=== PATIENT | female | born 1955 | race Two or more races ===

== ENCOUNTER 2017-06-12 13:02 | Emergency (ER) | payer OTHER ==
[2017-06-12 13:07] VITALS: BP 159/87; PULSE 96; TEMP 99; BMI 27.4
[2017-06-12] MEDS ORDERED: KETOROLAC TROMETHAMINE 30 MG/1 ML VIAL IM ONE (13:34)
[2017-06-12] MEDS ORDERED: KETOROLAC TROMETHAMINE 30 MG/1 ML VIAL ONE (13:42)
[2017-06-12 14:20] LABS: URINE APPEARANCE CLEAR; URINE BILIRUBIN NEGATIVE (NEGATIVE); URINE BLOOD NEGATIVE (NEGATIVE); URINE COLOR LTYELLOW; URINE GLUCOSE (UA) NEGATIVE (NEGATIVE); URINE KETONE NEGATIVE (NEGATIVE); URINE NITRITE NEGATIVE (NEGATIVE); URINE PROTEIN NEGATIVE (NEGATIVE); URINE UROBILINOGEN NEGATIVE mg/dL (0.2-1.0)
--- NOTE | 2017-06-12 14:29 | PDOC ---
History of Present Illness - General Chief Complaint: Injury Stated Complaint: FALL Time Seen by Provider: 06/12/17 13:26 History Source: Patient Exam Limitations: Language Barrier - History of Present Illness Initial Comments: 06/12/17 14:24 Daughters translating; CC fell on steps x 4 days ago with continued pain; Occurred: reports: last week Severity: reports: moderate Pain Location: reports: back, lower extremity (hip right) Method of Injury: Yes: fall Past History - Past Medical History Allergies/Adverse Reactions: Allergies Allergy/AdvReac Type Severity Reaction Status Date / Time No Known Allergies Allergy Verified 06/12/17 13:07 Home Medications: Ambulatory Orders Acetaminophen [Tylenol] 650 mg PO ASDIR 06/12/17 Amlodipine Besylate 10 mg PO DAILY 06/12/17 Glyburide/Metformin HCl [Glyburide-Metformin 5-500 mg] 1 each PO DAILY 06/12/17 Losartan Potassium [Cozaar] 100 mg PO DAILY 06/12/17 Diabetes: Yes HTN: Yes Other medical history: ARTHRITIS - Psycho/Social/Smoking Cessation Hx Anxiety: No Suicidal Ideation: No Smoking History: Never smoked Hx Alcohol Use: No Drug/Substance Use Hx: No Substance Use Type: None Review of Systems - Review of Systems Constitutional: No: Chills, Fever HEENTM: No: Symptoms Reported Respiratory: No: Cough Musculoskeletal: Yes: Back Pain, Joint Pain (right hip) Integumentary: No: Symptoms Reported Neurological: No: Numbness, Paresthesia, Tingling, Weakness *Physical Exam - Vital Signs Last Vital Signs Temp Pulse Resp BP Pulse Ox 99.0 F 96 H 20 159/87 99 06/12/17 13:04 06/12/17 13:04 06/12/17 13:04 06/12/17 13:04 06/12/17 13:04 - Physical Exam General Appearance: Yes: Appropriately Dressed Neck: positive: Supple. negative: Tender, Rigid Respiratory/Chest: positive: Lungs Clear. negative: Respiratory Distress Gastrointestinal/Abdominal: positive: Normal Bowel Sounds Lymphatic: positive: Adenopathy Musculoskeletal: positive: Other (tender to area L2-4; also pain right pelvis) ED Treatment Course - ADDITIONAL ORDERS Additional order review: Laboratory Results 06/12/17 13:45 Urine Color Ltyellow Urine Appearance Clear Urine pH 7.0 Urine Protein Negative Urine Glucose (UA) Negative Urine Ketones Negative Urine Blood Negative Urine Nitrite Negative Urine Bilirubin Negative Urine Urobilinogen Negative - RADIOLOGY Radiology Studies Ordered: Category Date Time Status HIP & PELVIS-RIGHT [RAD] Stat Radiology 06/12/17 13:34 Completed SPINE-LUMBAR SACRAL [RAD] Stat Radiology 06/12/17 13:34 Completed - Medications Given in the ED: ED Medications Discontinued Medications Generic Name Dose Route Start Last Admin Trade Name Freq PRN Reason Stop Dose Admin Ketorolac Tromethamine 30 mg 06/12/17 13:34 06/12/17 14:00 Toradol Injection - IM 06/12/17 13:35 30 mg ONCE ONE Administration Medical Decision Making - Medical Decision Making 06/12/17 14:26 feeling much better post toradol; xrays= no fxS noted; will suggest Nsaids x 1 week and follow up with LMD at [facility] *DC/Admit/Observation/Transfer Diagnosis at time of Disposition: Trauma of pelvis - Discharge Dispostion Disposition: HOME Condition at time of disposition: Stable Admit: No - Referrals Referrals: Danielle Krause [Primary Care Provider] - - Patient Instructions Additional Instructions: advil 400mg 3 times daily x 7 days; please see local MD for follow up 1` week - Post Discharge Activity
== END 2017-06-12 14:52 | disposition home or self-care (01) ==
LOC: JERFT 13:02
PROC: 3E0233Z Introduction of Anti-inflammatory into Muscle, Percutaneous Approach (ICD-10-PCS; principal; 2017-06-12)
DX: S39.83XA Other specified injuries of pelvis, initial encounter (principal); W10.8XXA Fall (on) (from) other stairs and steps, initial encounter; Y93.89 Activity, other specified; Y92.89 Other specified places as the place of occurrence of the external cause; Y99.8 Other external cause status; I10 Essential (primary) hypertension; E11.9 Type 2 diabetes mellitus without complications; Z79.84 Long term (current) use of oral hypoglycemic drugs; M12.9 Arthropathy, unspecified
CPT/HCPCS: 72100-TC; 73523-TC; 81003; 96372; 99281-25